=== PATIENT | male | born 1950 | race Caucasian/White ===

== ENCOUNTER 2023-02-24 08:00 | Outpatient (CLI) | payer MEDICAID ==
[2023-02-24 17:51] LABS: BASOPHILS # (AUTO) 0.1 10^3/uL (0.0-0.1); BASOPHILS % (AUTO) 0.7 %; EOSINOPHILS # (AUTO) 0.3 10^3/uL (0.0-0.7); EOSINOPHILS % (AUTO) 4.3 %; HCT - HEMATOCRIT 40.7 % (42.0-52.0); HGB - HEMOGLOBIN 12.8 g/dL (14.0-18.0); LYMPHOCYTES # (AUTO) 2.5 10^3/uL (1.5-3.5); LYMPHOCYTES % (AUTO) 33.8 %; MEAN CORPUSCULAR HEMOGLOBIN 30.8 pg (27.0-31.0); MEAN CORPUSCULAR HGB CONC 31.4 g/dL (32.0-36.0); MEAN CORPUSCULAR VOLUME 98.1 fL (80.0-94.0); MEAN PLATELET VOLUME 11.2 fL (7.4-11.4); MONOCYTES # (AUTO) 0.7 10^3/uL (0.0-1.0); MONOCYTES % (AUTO) 9.9 %; NEUTROPHILS # (AUTO) 3.7 10^3/uL (1.5-6.6); PLT - PLATELET COUNT 223 10^3/uL (130-450); RED BLOOD COUNT 4.15 10^6/uL (4.70-6.10); RED CELL DISTRIBUTION WIDTH 13.3 % (12.0-15.0); WHITE BLOOD COUNT 7.2 x10^3/uL (4.8-10.8)
[2023-02-24 18:19] LABS: ALBUMIN/GLOBULIN RATIO 1.2 (1.0-2.2); BILIRUBIN,TOTAL 0.2 mg/dL (0.2-1.0); CALCIUM 9.9 mg/dL (8.5-10.3); POTASSIUM 4.3 mmol/L (3.5-4.5); TOTAL PROTEIN 7.4 g/dL (6.4-8.9)
== END 2023-02-24 23:59 | disposition home or self-care (01) ==
LOC: LAB.R 08:00
PROVIDERS: ATTEND Registered Nurse
DX: B18.2 Chronic viral hepatitis C (principal); L03.90 Cellulitis, unspecified
CPT/HCPCS: 80053; 85025

== ENCOUNTER 2023-04-28 09:52 | Outpatient (CLI) | payer MEDICARE, MEDICAID ==
[2023-04-28 10:29] LABS: BASOPHILS # (AUTO) 0.1 10^3/uL (0.0-0.1); BASOPHILS % (AUTO) 1.2 %; EOSINOPHILS # (AUTO) 0.3 10^3/uL (0.0-0.7); EOSINOPHILS % (AUTO) 4.7 %; HCT - HEMATOCRIT 39.8 % (42.0-52.0); HGB - HEMOGLOBIN 12.4 g/dL (14.0-18.0); LYMPHOCYTES # (AUTO) 2.3 10^3/uL (1.5-3.5); LYMPHOCYTES % (AUTO) 34.2 %; MEAN CORPUSCULAR HGB CONC 31.2 g/dL (32.0-36.0); MEAN CORPUSCULAR VOLUME 96.1 fL (80.0-94.0); MONOCYTES # (AUTO) 0.6 10^3/uL (0.0-1.0); MONOCYTES % (AUTO) 9.3 %; NEUTROPHILS # (AUTO) 3.4 10^3/uL (1.5-6.6); NEUTROPHILS % (AUTO) 50.3 %; RED BLOOD COUNT 4.14 10^6/uL (4.70-6.10); RED CELL DISTRIBUTION WIDTH 14.6 % (12.0-15.0); WHITE BLOOD COUNT 6.7 x10^3/uL (4.8-10.8)
[2023-04-28 10:50] LABS: ALBUMIN 4.5 g/dL (3.2-5.5); ALBUMIN/GLOBULIN RATIO 1.5 (1.0-2.2); BILIRUBIN,TOTAL 0.3 mg/dL (0.2-1.0); CALCIUM 9.8 mg/dL (8.5-10.3); CREATININE 0.9 mg/dL (0.6-1.3); POTASSIUM 4.7 mmol/L (3.5-4.5); TOTAL PROTEIN 7.6 g/dL (6.4-8.9)
[2023-04-28 10:54] LABS: SLIDE REVIEW? Indicated
[2023-04-28 11:13] LABS: PLATELET ESTIMATE, MANUAL NORMAL (130-450,000) (NORMAL); PLATELET MORPHOLOGY NORMAL APPEARANCE (NORMAL)
== END 2023-04-28 09:53 | disposition home or self-care (01) ==
LOC: LAB 09:52
PROVIDERS: ATTEND Registered Nurse
DX: Z01.89 Encounter for other specified special examinations (principal)
CPT/HCPCS: 36415; 80053; 85025

== ENCOUNTER 2023-10-14 07:20 | Outpatient (CLI) | payer MEDICARE, MEDICAID ==
--- NOTE | 2023-10-14 10:11 | Mammography Report ---
MALE BILATERAL DIGITAL DIAGNOSTIC MAMMOGRAM 3D/2D: 10/14/2023 CLINICAL: Baseline exam. Growth of bilateral breast tissue. No prior exams were available for comparison. There is mild, slightly asymmetric, right greater than left, gynecomastia in both breasts that correl ates with clinical concern. No significant masses, calcifications, or other findings are seen in either breast. IMPRESSION: BENIGN Asymmetric gynecomastia is present and may be symptomatic. The patient should follow up with his [facility] physician to discuss possible contributing factors including medication changes, and hormona l or lifestyle factors. There is no mammographic evidence of malignancy. Findings and recommendations were conveyed to the patient at time of exam. This exam was interpreted at Station ID: [id number]. NOTE: For mammograms, a report in lay terms will be sent to the patient. Approximately 15% of breast malignancies will not be visualized mammographically. In the management of a palpable breast mass, a negative mammogram must not discourage biopsy of a clinically suspicious lesion. Electronically Signed By: Nesha feliciano/:10/14/2023 08:27:06 letter sent: No_Letter ACR BI-RADS Category 2: Benign Finding(s) 3342F PARENCHYMAL PATTERN: (A) - The breast(s) demonstrate(s) scattered fibroglandular densities. BI-RADS CATEGORY: (2) - 2 Unspecified - other recall n/a LATERALITY: (B)
== END 2023-10-14 07:21 | disposition home or self-care (01) ==
LOC: DI 07:20
PROVIDERS: ATTEND Registered Nurse
DX: N62 Hypertrophy of breast (principal)

== ENCOUNTER 2023-12-21 22:21 | Outpatient (CLI) | payer MEDICARE, MEDICAID | END 2023-12-21 23:59 | disposition EMS.NT | LOC: EMS 22:21 | DX: S20.20XA Contusion of thorax, unspecified, initial encounter (principal); W01.0XXA Fall on same level from slipping, tripping and stumbling without subsequent striking against object, initial encounter; F10.90 Alcohol use, unspecified, uncomplicated ==

== ENCOUNTER 2024-01-23 20:28 | Outpatient (CLI) | payer MEDICARE, MEDICAID | END 2024-01-23 23:59 | disposition EMS.NT | LOC: EMS 20:28 | DX: S00.81XA Abrasion of other part of head, initial encounter (principal); W01.0XXA Fall on same level from slipping, tripping and stumbling without subsequent striking against object, initial encounter; Y92.414 Local residential or business street as the place of occurrence of the external cause ==

== ENCOUNTER 2024-02-02 14:53 | Outpatient (CLI) | payer MEDICARE, MEDICAID | END 2024-02-02 23:59 | disposition critical access hospital (66) | LOC: EMS 14:53 | DX: S01.111A Laceration without foreign body of right eyelid and periocular area, initial encounter (principal); R47.81 Slurred speech; W18.30XA Fall on same level, unspecified, initial encounter; Y92.481 Parking lot as the place of occurrence of the external cause; F10.10 Alcohol abuse, uncomplicated | CPT/HCPCS: A0425; A0429 ==

== ENCOUNTER 2024-02-02 15:16 | Emergency (ER) | payer MEDICARE, MEDICAID ==
--- NOTE | 2024-02-02 15:26 | ED Physician Documentation ---
PD HPI Fall - Stated complaint Stated Complaint: GLF - Additional information Additional information: 73-year-old gentleman had an unwitnessed fall after leaving the bar this afternoon. He had multiple shots of [place]. Unwitnessed fall was found facedown on the concrete with laceration of his right eyebrow line. Bruising about the right orbit. He is not sure how he fell. He has a scrape on his left knee otherwise no other injuries. Denies any presyncope chest pain shortness of breath. He is unable to really recount the accident. EMS transported with towel roll around neck. Hx prior neck fx. Review of Systems Cardiac: denies: Chest pain / pressure Respiratory: denies: Dyspnea PD PAST MEDICAL HISTORY - Past Medical History Cardiovascular: None - Allergies Allergies/Adverse Reactions: Allergies Allergy/AdvReac Type Severity Reaction Status Date / Time Unable to Assess Allergy Verified 02/02/24 15:38 PD ED PE NORMAL - Vitals Vital signs reviewed: Yes - General General: Well developed/nourished - HEENT HEENT: Other (Stellate laceration right eyebrow line. Bruising about right inferior orbit.) - Cardiac Cardiac: RRR, No murmur - Respiratory Respiratory: No respiratory distress - Abdomen Abdomen: Normal bowel sounds, Soft - Extremities Extremities: Other (Bruise left knee. Full range of motion.) - Neuro Neuro: No motor deficit, No sensory deficit, Normal speech Results - Vitals Vitals: Vital Signs - 24 hr 02/02/24 02/02/24 15:27 17:38 Temperature 36.6 C Heart Rate 83 78 Respiratory 19 14 Rate Blood Pressure 116/75 124/72 O2 Saturation 96 98 Oxygen O2 Source Room air - Labs Labs: Laboratory Tests 02/02/24 02/02/24 02/02/24 16:00 16:00 16:00 WBC 7.0 RBC 3.54 L Hgb 11.7 L Hct 35.0 L MCV 98.9 H MCH 33.1 H MCHC 33.4 RDW 15.3 H Plt Count 227 MPV 10.0 Neut # (Auto) 4.0 Lymph # (Auto) 1.8 Centre # (Auto) 0.7 Eos # (Auto) 0.4 Baso # (Auto) 0.1 Absolute Nucleated RBC 0.00 Nucleated RBC % 0.0 PT 11.3 INR 1.0 Sodium 140 Potassium 3.4 L Chloride 104 Carbon Dioxide 23 Anion Gap 13.0 BUN 15 Creatinine 0.7 Estimated GFR (MDRD) 111 Glucose 85 Calcium 9.2 Total Bilirubin 0.3 AST 58 H ALT 36 Alkaline Phosphatase 41 L Total Protein 6.8 Albumin 4.1 Globulin 2.7 Albumin/Globulin Ratio 1.5 Ethyl Alcohol 322.7 Procedures - Laceration (location) face Wound type: Stellate, Irregular, Into subcut fat Neurovascular status: Sensory intact, Vascular intact Anesthesia: Marcaine 0.25% with epi Wound preparation: Irrigated copiously NS, Wound explored, To the base Deep layer closure: Vicryl, size #-0 - enter number (4-0), # sutures - enter number (3) Skin layer closure: Nylon, Interrupted, Size #-0 - enter number (6-0), Sutures - enter # (16) Other: Patient tolerated well, No complications, Dressing applied, Tetanus booster given PD Medical Decision Making - ED course ED course: Patient presents as a modified trauma. Will get CT of his head maxillofacial bones and cervical spine. Will then address the wounds. Will get EKG and labs for cause of syncope though most likely related to his alcohol intoxication. CT of brain and maxillofacial bones are both negative except for the soft tissue injury at evident externally. His complex wound was sutured as above tolerated well. I was called by radiology indicating that he had a possible superior third of odontoid C2 fracture with 3 mm of diastases the prevertebral soft tissue swelling actually was minimal and the question was whether this was actually an acute fracture. The patient was placed in a c-collar subsequently given his history that he had previous neck fracture which was treated in [place]. Will obtain those records to compare current state to prior. He has no neck tenderness and is completely neurologically intact. We were able to get records from in [place] which do indicate that he did in fact have a nondisplaced type II odontoid fracture back in November 2022 which checks out with his clinical picture here he has no neck tenderness whatsoever he said his neck hurt "like hell" last time. He has no soft tissue swelling and the radiologist actually concerned this might not be an acute injury and I think with this reassuring information his c-collar can be discontinued he can be discharged home.
[2024-02-02 16:10] LABS: BASOPHILS # (AUTO) 0.1 10^3/uL (0.0-0.1); BASOPHILS % (AUTO) 1.4 %; EOSINOPHILS # (AUTO) 0.4 10^3/uL (0.0-0.7); EOSINOPHILS % (AUTO) 6.2 %; HGB - HEMOGLOBIN 11.7 g/dL (14.0-18.0); LYMPHOCYTES # (AUTO) 1.8 10^3/uL (1.5-3.5); LYMPHOCYTES % (AUTO) 25.9 %; MEAN CORPUSCULAR HEMOGLOBIN 33.1 pg (27.0-31.0); MEAN CORPUSCULAR HGB CONC 33.4 g/dL (32.0-36.0); MEAN CORPUSCULAR VOLUME 98.9 fL (80.0-94.0); MONOCYTES # (AUTO) 0.7 10^3/uL (0.0-1.0); MONOCYTES % (AUTO) 9.6 %; NEUTROPHILS % (AUTO) 56.5 %; PLT - PLATELET COUNT 227 10^3/uL (130-450); RED BLOOD COUNT 3.54 10^6/uL (4.70-6.10); RED CELL DISTRIBUTION WIDTH 15.3 % (12.0-15.0)
[2024-02-02 16:25] LABS: ALBUMIN 4.1 g/dL (3.2-5.5); ALBUMIN/GLOBULIN RATIO 1.5 (1.0-2.2); BILIRUBIN,TOTAL 0.3 mg/dL (0.2-1.0); CALCIUM 9.2 mg/dL (8.5-10.3); CREATININE 0.7 mg/dL (0.6-1.3); ETOH - ETHANOL 322.7 mg/dL; POTASSIUM 3.4 mmol/L (3.5-4.5); PT - PROTHROMBIN TIME 11.3 secs (9.9-12.6); TOTAL PROTEIN 6.8 g/dL (6.4-8.9)
[2024-02-02] MEDS: BUPIVACAINE 0.25%-EPI 1:200000 PF 10 ML VIAL SUBQ ONE (16:56)
--- NOTE | 2024-02-02 17:24 | CT Report ---
PROCEDURE: Head WO INDICATIONS: fall TECHNIQUE: Noncontrast 4.5 mm thick angled axial sections acquired from the foramen magnum to the vertex. For r adiation dose reduction, the following was used: automated exposure control, adjustment of mA and/or kV according to patient size. COMPARISON: CT maxillofacial 02/02/2024 FINDINGS: Image quality: Excellent. The ventricular system and cortical sulci demonstrate atrophy, consistent for patient's stated age. There are areas of hypodensity in the periventricular and subcortical white matter. There is no acut e intra or extra-axial fluid collection. No acute hemorrhage, mass lesion or midline shift. Brainst em is unremarkable. Globes are symmetrical. Sinuses are aerated. Osseous structures are intact. Right periorbital soft ti ssue edema. Right frontal scalp hematoma. IMPRESSION: No acute intracranial pathology. Right periorbital and scalp soft tissue hematoma. Reviewed by: Madyson Brothers MD on 02/02/2024 5:22 PM PDT Approved by: Madyson Brothers MD on 02/02/2024 5:22 PM PDT Station ID: [id number]
--- NOTE | 2024-02-02 17:31 | CT Report ---
PROCEDURE: Cervical Spine WO INDICATIONS: fall TECHNIQUE: Noncontrast 3 mm thick sections acquired from the skull base to the T4 level. Sagittal and coronal r eformats were then constructed. For radiation dose reduction, the following was used: automated exp osure control, adjustment of mA and/or kV according to patient size. COMPARISON: CT brain 02/02/2024 FINDINGS: Image quality: Excellent. Bones: There is fracture through the superior third of the odontoid with 3 mm diastases. There is sli ght posterior angulation of the superior fragment. Multilevel degenerative changes are present includ ing severe disc space narrowing at C4-5, C5-6 and C6-7 with anterior osteophytes. Visualized superior ribs are intact. Soft tissues: Prevertebral soft tissues measures 6 mm at the level of C2. No paravertebral hematomas . No apical pneumothoraces. IMPRESSION: Fracture within the superior third of the odontoid with 3 mm diastases as above. Anterior prevertebra l soft tissue measures 6 mm. While appearance is somewhat chronic and prevertebral soft tissues are n ot abnormally thickened, there is given history of recent trauma. Recommend correlation of point tend erness as well as pain portably within this region. The above findings were discussed with Dr. Nirmal Salmon 02/02/2024 at 5:20 PM. Reviewed by: Madyson Brothers MD on 02/02/2024 5:30 PM PDT Approved by: Madyson Brothers MD on 02/02/2024 5:30 PM PDT Station ID: [id number]
--- NOTE | 2024-02-02 17:33 | CT Report ---
PROCEDURE: Maxillofacial WO INDICATIONS: fall TECHNIQUE: Noncontrast 1.5 mm thick axial images acquired from the mandible through the frontal sinuses, with co dada and sagittal reformatting. For radiation dose reduction, the following was used: automated ex posure control, adjustment of mA and/or kV according to patient size. COMPARISON: CT cervical spine 02/02/2024. FINDINGS: Image quality: Excellent. Bones and teeth: Orbital grant are intact. Sinus grant show no fracture or deformity. Nasal bones and septum are intact. Visualized portions of the mandible demonstrate no fractures or subluxation. Zygomatic arches are intact. Pterygoid plates are intact. Odontoid fracture as above. Sinuses: Minimal scattered areas of mucosal thickening predominantly within the ethmoid air cells. Soft tissues: Right periorbital and right frontal scalp hematoma/laceration.. Vascular: Visualized vascular structures appear normal in the absence of contrast. Bony vascular fo ramina and canals are intact. IMPRESSION: Right periorbital edema as well as right frontal scalp hematoma. Odontoid fracture as above. Please see CT cervical spine report for further details. Reviewed by: Madyson Brothers MD on 02/02/2024 5:31 PM PDT Approved by: Madyson Brothers MD on 02/02/2024 5:31 PM PDT Station ID: [id number]
[2024-02-02 18:03] VITALS: BP 124/72; O2SAT 98
--- NOTE | 2024-02-02 18:44 | ED Physician Documentation ---
ED Addendum - Addendum Addendum: Clinical pression: Fall Alcohol intoxication Facial laceration Old C2 fracture Plan DC home, sutures out in 7 days with PCP. 02/02/24 18:43
== END 2024-02-02 19:39 | disposition home or self-care (01) ==
LOC: EDUNIT# → ED 15:16
DX: S01.111A Laceration without foreign body of right eyelid and periocular area, initial encounter (principal); S80.02XA Contusion of left knee, initial encounter; W18.39XA Other fall on same level, initial encounter; Y92.59 Other trade areas as the place of occurrence of the external cause; F10.929 Alcohol use, unspecified with intoxication, unspecified
CPT/HCPCS: 12015; 36415; 70450; 70486; 72125; 80053; 85025; 85610; 93005; 99284; G0480; 82077

== ENCOUNTER 2024-02-14 17:52 | Outpatient (CLI) | payer MEDICARE, MEDICAID | END 2024-02-14 23:59 | disposition critical access hospital (66) | LOC: EMS 17:52 | DX: S01.01XA Laceration without foreign body of scalp, initial encounter (principal); W01.0XXA Fall on same level from slipping, tripping and stumbling without subsequent striking against object, initial encounter; Y92.099 Unspecified place in other non-institutional residence as the place of occurrence of the external cause | CPT/HCPCS: A0425; A0429 ==

== ENCOUNTER 2024-02-14 18:12 | Emergency (ER) | payer MEDICARE, MEDICAID ==
--- NOTE | 2024-02-14 19:18 | ED Physician Documentation ---
PD HPI HEAD INJURY - Stated complaint Stated Complaint: GLF/HBD - Chief complaint Chief Complaint: Trauma Hd/Nk - History obtained from History obtained from: Patient, EMS - History of Present Illness Pain level max: 0 Pain level now: 0 Associated symptoms: No: LOC, Nausea / vomiting Contributing factors: Intoxicated - Additional information Additional information: Patient is a 73-year-old male who presents to the emergency department after a fall in his room at [facility]. He has been drinking today. He reportedly hit his head on the door or a cabinet.He sustained a laceration to the left scalp and forehead. Not on blood thinners. He states that he is an alcoholic and drinks regularly. States his tetanus shot is up-to-date. Denies any other injuries. Moving all extremities without any difficulty and without pain. No evidence of injury to major joints. Review of Systems Constitutional: denies: Fever, Chills Respiratory: denies: Cough GI: denies: Vomiting Skin: denies: Rash Musculoskeletal: denies: Neck pain, Back pain Neurologic: denies: Headache PD PAST MEDICAL HISTORY - Past Medical History Cardiovascular: None - Past Surgical History Past Surgical History: No - Allergies Allergies/Adverse Reactions: Allergies Allergy/AdvReac Type Severity Reaction Status Date / Time Unable to Assess Allergy Verified 02/14/24 19:37 - Social History Does the pt smoke?: No Smoking Status: Never smoker Does the pt drink ETOH?: Yes Does the pt have substance abuse?: No - Immunizations Immunizations are current?: Yes - POLST Patient has POLST: No PD ED PE NORMAL - Vitals Vital signs reviewed: Yes - General General: Alert and oriented X 3, No acute distress, Well developed/nourished, Other (Intoxicated) - HEENT HEENT: PERRL, Other (5 cm laceration to the left scalp. There is a 1.5 cm curved superficial laceration of the forehead. No palpable skull fractures.) - Neck Neck: Supple, no meningeal sign, No bony TTP - Cardiac Cardiac: RRR, Strong equal pulses - Respiratory Respiratory: No respiratory distress, Clear bilaterally - Abdomen Abdomen: Soft, Non tender, Non distended - Back Back: No spinal TTP - Derm Derm: Warm and dry - Extremities Extremities: Normal ROM s pain - Neuro Neuro: Alert and oriented X 3, No motor deficit, No sensory deficit, Normal speech Eye Opening: Spontaneous Motor: Obeys Commands Verbal: Oriented GCS Score: 15 Results - Vitals Vitals: Vital Signs - 24 hr 02/14/24 02/14/24 02/14/24 18:20 18:35 20:25 Temperature 36.4 C L Heart Rate 88 82 78 Respiratory 18 23 19 Rate Blood Pressure 129/79 119/69 120/72 O2 Saturation 96 94 98 02/14/24 21:07 Temperature Heart Rate 98 Respiratory 17 Rate Blood Pressure O2 Saturation 94 Oxygen O2 Source Room air - Rads (name of study) Head CT Relevant Findings:: Final report received, See rad report Cervical spine CT Relevant Findings:: Final report received, See rad report Procedures - Laceration (location) Left scalp Length in cm: 5 Wound type: Linear, Into subcut fat, Clean Neurovascular status: Sensory intact, Motor intact, Vascular intact Anesthesia: Lidocaine 1% Wound preparation: Irrigated copiously NS, Wound explored, To the base Skin layer closure: Nova Other: Patient tolerated well, No complications, Neurovascular intact, Dressing applied, Tetanus UTD Forehead Length in cm: 1.5 Wound type: Curved, Superficial Neurovascular status: Sensory intact, Motor intact, Vascular intact Wound preparation: Irrigated copiously NS Skin layer closure: Dermabond Other: Patient tolerated well, No complications, Neurovascular intact, Tetanus UTD PD Medical Decision Making - ED course Complexity details: reviewed results, re-evaluated patient, considered diff erential, d/w patient ED course: 73-year-old male lives at [facility]. Intoxicated today. No acute findings on head CT or cervical spine CT. Has a chronic appearing dens fracture. Laceration was repaired. Tolerated well. No complications. No indication for further testing or admission. Patient is discharged back to his facility. I would recommend that they work on limiting his alcohol intake. Patient counseled regarding signs and symptoms for which I believe and urgent re- evaluation would be necessary. Patient with good understanding of and agreement to plan and is comfortable going home at this time This document was made in part using voice recognition software. While efforts are made to proofread this document, sound alike and grammatical errors may occur. Departure - Departure Disposition: 01 Home, Self Care Clinical Impression: Alcohol intoxication Qualifiers: Complication of substance-induced condition: uncomplicated Qualified Code(s): F10.920 - Alcohol use, unspecified with intoxication, uncomplicated Fall Qualifiers: Encounter type: initial encounter Qualified Code(s): W19.XXXA - Unspecified fall, initial encounter Scalp laceration Qualifiers: Encounter type: initial encounter Qualified Code(s): S01.01XA - Laceration without foreign body of scalp, initial encounter Closed head injury Qualifiers: Encounter type: initial encounter Qualified Code(s): S09.90XA - Unspecified injury of head, initial encounter Condition: Stable Instructions: ED Alcohol Intoxication, ED Head Injury Closed, ED Laceration Scalp Stitch Or Stap Follow-Up: your,doctor [Other] Comments: Please follow-up with your doctor in about 10 days for staple removal. Please return if you worsen. Your head CT and cervical spine CT do not show any acute abnormalities tonight. Keep the wounds clean. Forms: PCP List Discharge Date/Time: 02/14/24 21:08
--- NOTE | 2024-02-14 19:59 | CT Report ---
PROCEDURE: Head WO INDICATIONS: fall, intoxicated TECHNIQUE: Noncontrast 4.5 mm thick angled axial sections acquired from the foramen magnum to the vertex. For r adiation dose reduction, the following was used: automated exposure control, adjustment of mA and/or kV according to patient size. COMPARISON: 02/02/2024 FINDINGS: Image quality: Excellent. CSF spaces: Basal cisterns are patent. No extra-axial fluid collections. Ventricles are normal in size and shape. Brain: No midline shift. No intracranial masses or hemorrhage. [place]-white matter interface is norm al. Age-appropriate cerebral cortical atrophy. Skull and face: Frontal soft tissue irregularity, likely laceration without debris or underlying fra cture. Sinuses: Visualized sinuses are clear. The mastoid cavities are hypoplastic. Mild mucosal thickenin g in the ethmoid air cells anteriorly. IMPRESSION: Cerebral cortical atrophy. No CT evidence of acute trauma. Small frontal soft tissue injury without underlying fracture. Reviewed by: Nesha Shields MD on 02/14/2024 7:58 PM PDT Approved by: Nesha Shields MD on 02/14/2024 7:58 PM PDT Station ID: [id number]
--- NOTE | 2024-02-14 20:18 | CT Report ---
PROCEDURE: Cervical Spine WO INDICATIONS: fall, intoxicated TECHNIQUE: Noncontrast 3 mm thick sections acquired from the skull base to the T4 level. Sagittal and coronal r eformats were then constructed. For radiation dose reduction, the following was used: automated exp osure control, adjustment of mA and/or kV according to patient size. COMPARISON: 02/02/2024 FINDINGS: Image quality: Decreased. There is motion throughout the cervical spine.. Bones: There is a minimally posteriorly displaced fracture at the odontoid base. There is sclerosis o f the odontoid and C2 body. Degenerative changes at the C1 to interval and craniocervical junction. No acute fractures. Severe disc height loss and moderate endplate spurring from C4 through C6. Trace anterolisthesis C2-3 and C3-4. Soft tissues: Mild, chronic soft tissue thickening surrounding the fractured odontoid process. There is no significant cord compression. Distally in the cervical spine there is multilevel moderate centr al canal stenosis due to disc osteophyte. IMPRESSION: Subacute to chronic fracture at the base of C2 with degenerative appearing sclerosis. No new fractures. Chronic degenerative changes throughout the cervical spine. Reviewed by: Nesha Shields MD on 02/14/2024 8:17 PM PDT Approved by: Nesha Shields MD on 02/14/2024 8:17 PM PDT Station ID: [id number]
[2024-02-14 20:40] VITALS: BP 120/72
[2024-02-14 21:12] VITALS: O2SAT 94
== END 2024-02-14 21:08 | disposition home or self-care (01) ==
LOC: EDUNIT# → ED 18:12
DX: S01.01XA Laceration without foreign body of scalp, initial encounter (principal); S01.81XA Laceration without foreign body of other part of head, initial encounter; S09.90XA Unspecified injury of head, initial encounter; W19.XXXA Unspecified fall, initial encounter; Y92.003 Bedroom of unspecified non-institutional (private) residence as the place of occurrence of the external cause; F10.120 Alcohol abuse with intoxication, uncomplicated
CPT/HCPCS: 12002; 12011; 99283; 99284

== ENCOUNTER 2024-02-14 21:09 | Outpatient (CLI) | payer MEDICARE, MEDICAID | END 2024-02-14 23:59 | disposition home or self-care (01) | LOC: EMS 21:09 | PROVIDERS: ATTEND Emergency Medicine | DX: R41.0 Disorientation, unspecified (principal); S01.01XA Laceration without foreign body of scalp, initial encounter; W18.30XA Fall on same level, unspecified, initial encounter | CPT/HCPCS: A0425; A0428 ==

== ENCOUNTER 2024-02-27 10:47 | Outpatient (CLI) | payer MEDICARE, MEDICAID | END 2024-02-27 23:59 | disposition EMS.NT | LOC: EMS 10:47 | DX: Z03.89 Encounter for observation for other suspected diseases and conditions ruled out (principal) ==